=== PATIENT | female | born 1955 | race Caucasian/White ===

== ENCOUNTER 2016-10-26 15:37 | Emergency (ER) | payer MEDICARE, OTHER ==
[2016-10-26 13:41] LABS: ASCORBIC ACID (UR NOT ORDER) NEG (NEG); BILIRUBIN, URINE NEGATIVE (NEG); ER URINALYSIS TAT 0 Hrs 08 Mins; KETONE, URINE NEGATIVE (NEG); LEUKOCYTE ESTERASE(NOT OR NEG (NEG); NITRITE (URINE) NEG (NEG); WBC (NOT ORDERED) (RFLEX) < 1 (0-5)
[2016-10-26 13:48] LABS: BASOPHILS 0.4 %; BASOPHILS ABSOLUTE 0.03 10/3/uL (0.0-0.16); EOSINOPHILS ABSOLUTE 0.15 10/3/uL (0.0-0.53); HEMOGLOBIN 15.7 g/dL (12.0-16.0); IMMATURE GRANULOCYTES 0.4 %; IMMATURE GRANULOCYTES ABSOLUTE 0.03 10/3/uL (0.0-0.11); LYMPHOCYTES 29.4 %; LYMPHOCYTES ABSOLUTE 2.24 10/3/uL (0.67-4.30); MEAN CORPUS HGB CONC 36.3 g/dL (32.0-36.0); MEAN CORPUSCULAR HEMOGLOB 30.7 pg (26.0-34.0); MEAN PLATELET VOLUME 9.1 fL (9.2-13.0); MONOCYTES 8.3 %; MONOCYTES ABSOLUTE 0.63 10/3/uL (0.21-1.20); NEUTROPHILS 59.5 %; NEUTROPHILS ABSOLUTE 4.55 10/3/uL (2.02-8.40); PLATELET COUNT 259 10/3/uL (150-400); RBC DISTRIBUTION WIDTH 12.5 % (12.0-16.0); RED CELL COUNT 5.11 10/6/uL (4.0-5.6)
[2016-10-26 13:49] LABS: ER CBC TAT 0 Hrs 11 Mins; HEMATOCRIT 43.3 % (36.0-48.0); MANUAL DIFF NO %; MEAN CORPUSCULAR VOLUME 84.7 fL (80-100); PROTIME (NOT ORD) 13.4 SEC (12.0-14.5); WHITE BLOOD CELLS 7.6 10/3/uL (4.5-10.5)
[2016-10-26 13:50] LABS: PARTIAL THROMBO TIME 28.8 SEC (22.5-37.2)
[2016-10-26 13:57] LABS: BENZODIAZEPINES (NOT ORD) POS (NEG); PHENCYCLIDINE(PCP) NEG (NEG)
[2016-10-26 13:58] LABS: AMPHETAMINES (NOT ORD) NEG (NEG); BARBITURATES (NOT ORDERED NEG (NEG); CANNABINOIDS (THC) NEG (NEG); COCAINE (NOT ORDERED) NEG (NEG); OPIATES POS (NEG); TRICYCLICS NEG (NEG)
[2016-10-26 14:00] LABS: CALCIUM, SERUM 9.6 MG/DL (8.5-10.4); CHEST PAIN PROFILE TAT 0 Hrs 22 Mins; CHLORIDE, SERUM 91 MMOL/L (96-112); CO2 (CARBON DIOXIDE) 28 MMOL/L (24-34); CREATININE 0.61 MG/DL (0.55-1.02); GFR AFRICAN AMERICAN 114 ML/MIN (>=60); GFR NON AFRICAN AMERICAN 99 ML/MIN (>=60); POTASSIUM, SERUM 3.1 MMOL/L (3.5-5.3); SODIUM, SERUM 126 MMOL/L (135-148); TROPONIN I <0.02 NG/ML (<0.05)
[2016-10-26 14:01] LABS: BUN (BLOOD UREA NITROGEN) 11 MG/DL (6-23); GLUCOSE, SERUM 86 MG/DL (60-99)
[~2016-10-26 15:37] MED LIST: ATEN100 PO; KDUR20 PO; KLONO5 PO; KLOR-CON M2020 MEQ PO; LISINOPRIL PO; MIRALAXPKT PO; NEUR300 PO; NICODERM C21 MG/241 TOP; NORCO1 TAB PO; PCET PO; POTASSIUM PO; PRILO PO; PRIN20 PO; TRAZ100 PO; TRAZODONE PO; XANAX1 MG PO; ZESTORETIC PO
== END 2016-10-26 15:45 | disposition home or self-care (01) ==
LOC: ER 15:37
PROVIDERS: Nurse Practitioner Family
DX: I10 Essential (primary) hypertension (principal); E87.1 Hypo-osmolality and hyponatremia; E87.6 Hypokalemia; J45.909 Unspecified asthma, uncomplicated; J44.9 Chronic obstructive pulmonary disease, unspecified; F17.200 Nicotine dependence, unspecified, uncomplicated; Z88.0 Allergy status to penicillin; Z79.899 Other long term (current) drug therapy
CPT/HCPCS: 71010; 80048; 80305; 81001; 83690; 83735; 83880; 84484; 85025; 85610; 85730; 93005; 96374; 96375; 99285; A9270-GY; J0360; J1885